=== PATIENT | male | born 1965 | race Two or more races ===

== ENCOUNTER 2019-12-14 15:08 | Emergency (ER) | payer OTHER ==
[~2019-12-14] VITALS: Ht 177.8 cm; Wt 97.5 kg
[~2019-12-14 15:08] MED LIST: TUSSIONEX PENNKI5 ML PO
[2019-12-14] MEDS ORDERED: BACTRIM DS TAB1 EACH PO (16:36)
== END 2019-12-14 16:56 | disposition home or self-care (01) ==
LOC: ER 15:08
DX: L02.212 Cutaneous abscess of back [any part, except buttock and flank] (principal)